=== PATIENT | male | born 1960 | race American Indian/Alaskan Native ===

== ENCOUNTER → 2017-12-03 | Outpatient (CLI) | payer OTHER | LOC: FIMAGING 10:42 | PROVIDERS: ATTEND Orthopaedic Surgery | DX: Z01.818 Encounter for other preprocedural examination (principal); M17.11 Unilateral primary osteoarthritis, right knee ==

== ENCOUNTER 2017-12-31 06:01 | Observation (INO) | payer OTHER ==
[~2017-12-31 06:01] MED LIST: ROPIVACAINE 0.2% 80 MG, EPINEPHrine 0.2 MG, KETOROLAC TROMETHAMINE 30 MG in SYRINGE 0 ML IU ONE; TRANEXAMIC ACID 3,000 MG in NS (SYRINGE) 50 ML IRR ONE
[2017-12-31] MEDS ORDERED: LIDOCAINE 1% 2 ML INJ ID PRN (06:15)
[2017-12-31] MEDS ORDERED: DEXAMETHASONE 4 MG/ML VIAL IVP ONE (06:15)
[2017-12-31] MEDS ORDERED: ACETAMINOPHEN 325 MG TAB PO ONE (06:15)
[2017-12-31] MEDS ORDERED: FAMOTIDINE 20 MG TAB PO ONE (06:15)
[2017-12-31] MEDS ORDERED: LR 1,000 ML IV ONE (06:15)
[2017-12-31] MEDS ORDERED: ceFAZolin 2 GM/DEXTROSE 100 ML IV ONE (06:15)
[2017-12-31] MEDS ORDERED: TRANEXAMIC ACID 3,000 MG/50 ML BAG IRR ONE (06:31)
--- NOTE | 2017-12-31 07:02 | PDHPUP ---
History & Physical Update H&P update statement: This history and physical update is based on an assessment of the patient which was completed after admission or registration (within 24 hours), but prior to the surgery/procedure. H&P update: H&P reviewed & patient examined, no change in patient's condition since H&P completed
[2017-12-31] MEDS ORDERED: MIDAZOLAM 2 MG/2 ML VIAL ONE (07:06)
[2017-12-31] MEDS ORDERED: PROPOFOL/EMULSION 500 MG/50 ML BOTTLE IV ONE (07:06)
--- NOTE | 2017-12-31 07:11 | PDANEPAE ---
ANE Past Medical History - Cardiovascular History Hx Hypertension: No Hx Arrhythmias: No Hx Chest Pain: No Hx Coronary Artery / Peripheral Vascular Disease: No Hx CHF / Valvular Disease: No Hx Palpitations: No - Pulmonary History Hx COPD: No Hx Asthma/Reactive Airway Disease: No Hx Recent Upper Respiratory Infection: No Hx Oxygen in Use at Home: No Hx Sleep Apnea: No Sleep Apnea Screening Result - Last Documented: Negative - Neurologic History Hx Cerebrovascular Accident: No Hx Seizures: No Hx Dementia: No - Endocrine History Hx Diabetes: No - Renal History Hx Renal Disorders: No Renal History Comment: kidney stones - Liver History Hx Hepatic Disorders: No - Neurological & Psychiatric Hx Hx Neurological and Psychiatric Disorders: Yes Neurological / Psychiatric History Comment: RA - Cancer History Hx Cancer: No - Congenital Disorder History Hx Congenital Disorders: No - GI History Hx Gastrointestinal Disorders: No - Other Health History Other Health History: none - Chronic Pain History Chronic Pain: No - Surgical History Prior Surgeries: L HAMSTRING RUPTURE REPAIR. L SHOULDER REPAIR. R SHOULDER REPAIR. L KNEE MEDIAL. MENISCECTOMY. R 4 PREVIOUS SX. R PERINEAL TENDON REPAIR ANE Review of Systems Review of Systems: - Exercise capacity METS (RN): 5 METS ANE Patient History - Allergies Allergies/Adverse Reactions: No Known Allergies Allergy (Verified 12/08/17 10:38) - Home Medications Home Medications: Acetaminophen/Codeine 300/30Mg [Tylenol #3 (*)] 1 each PO BID PRN 12/08/17 [ Last Taken 1 Month Ago ~11/30/17] Atorvastatin Calcium [Lipitor 10 mg (*)] 10 mg PO DAILY 12/08/17 [Last Taken 23:30] Etodolac [ETODOLAC] 400 mg PO DAILY PRN 12/08/17 [Last Taken 12/25/17] Gabapentin [Neurontin 300 MG (*)] 900 mg PO TID 12/08/17 [Last Taken 12/30/17 23 :30] Gemfibrozil [Lopid 600 MG (*)] 600 mg PO BIDAC 12/08/17 [Last Taken 1 Week Ago ~ 12/24/17] Hydroxychloroquine Sulfate [Plaquenil 200 mg (*)] 400 mg PO DAILY 12/08/17 [ Last Taken 12/30/17 23:30] Leflunomide [Arava 10 mg (*)] 10 mg PO DAILY 12/08/17 [Last Taken 12/30/17 23:30 ] Tocilizumab [Actemra] 8 mg IV Q28D 12/08/17 [Last Taken 1 Month Ago ~11/30/17] sulfaSALAzine [Azulfidine 500 MG (*)] 1,000 mg PO BID 12/08/17 [Last Taken 12/30 23:30] - NPO status NPO Since - Liquids (Date): 12/31/17 NPO Since - Liquids (Time): 04:00 NPO Since - Solids (Date): 12/30/17 NPO Since - Solids (Time): 21:00 - Smoking Hx Smoking Status: Never smoked - Family Anes Hx Family Hx Anesthesia Complications: none ANE Labs/Vital Signs - Vital Signs Blood Pressure: 152/90 Heart Rate: 81 Respiratory Rate: 18 O2 Sat (%): 94 Height: 182.88 cm Weight: 107.955 kg ANE Physical Exam - Airway Neck exam: FROM Mallampati Score: Class 1 Mouth exam: normal dental/mouth exam - Pulmonary Pulmonary: no respiratory distress, no rales or rhonchi, clear to auscultation - Cardiovascular Cardiovascular: regular rate and rhythym, no murmur, rub, or gallop - ASA Status ASA Status: II ANE Anesthesia Plan Anesthesia Plan: spinal Regional Anesthesia: adductor canal FNB
[2017-12-31] MEDS ORDERED: ALBUTEROL 3 ML DEYVIAL IH PRN (07:31)
[2017-12-31] MEDS ORDERED: ACETAMINOPHEN 500 MG TAB PO PRN (07:31)
[2017-12-31] MEDS ORDERED: NALOXONE HCL 0.4 MG/ML INJ IVP PRN (07:31)
[2017-12-31] MEDS ORDERED: fentaNYL 100 MCG/2 ML INJ IVP PRN (07:31)
[2017-12-31] MEDS ORDERED: HYDROCODONE/APAP 5/325 TAB PO PRN (07:31)
[2017-12-31] MEDS ORDERED: LIDOCAINE 2% 5 ML SDV ONE (07:34)
[2017-12-31] MEDS ORDERED: PROMETHAZINE HCL 25 MG/ML INJ IVP PRN ×2 (07:42→08:47)
[2017-12-31] MEDS ORDERED: ONDANSETRON 4 MG/2 ML VIAL IVP PRN ×2 (07:42→08:47)
[2017-12-31] MEDS ORDERED: LR 500 ML IV PRN (07:42)
[2017-12-31] MEDS ORDERED: DEXAMETHASONE 4 MG/ML VIAL IVP PRN (07:42)
[2017-12-31] MEDS ORDERED: VANCOMYCIN 1 GM VIAL ONE (08:14)
[2017-12-31] MEDS ORDERED: ROPIVACAINE HCL 150 MG/30 ML INJ ONE (08:29)
[2017-12-31] MEDS ORDERED: CYCLOBENZAPRINE 10 MG TAB PO PRN (08:47)
[2017-12-31] MEDS ORDERED: METOCLOPRAMIDE 10 MG/2 ML VIAL IVP PRN (08:47)
[2017-12-31] MEDS ORDERED: ONDANSETRON DISINTEGRATING 4 MG TAB PO PRN (08:47)
[2017-12-31] MEDS ORDERED: TEMAZEPAM 15 MG CAP PO PRN (08:47)
[2017-12-31] MEDS ORDERED: DIPHENOXYLATE/ATROPINE LOMOTIL 1 TAB PO PRN (08:47)
[2017-12-31] MEDS ORDERED: BISACODYL 10 MG SUPP PR PRN (08:47)
[2017-12-31] MEDS ORDERED: LACTULOSE 20 GM/30 ML UDCUP PO PRN (08:47)
[2017-12-31] MEDS ORDERED: PROMETHAZINE HCL 25 MG SUPPR PR PRN (08:47)
[2017-12-31] MEDS ORDERED: diphenhydrAMINE 25 MG CAP PO PRN (08:47)
[2017-12-31] MEDS ORDERED: POLYETHYLENE GLYCOL 3350 17 GM PKT PO PRN (08:47)
[2017-12-31] MEDS ORDERED: MAGNESIUM HYDROXIDE 30 ML UDCUP PO PRN (08:47)
[2017-12-31] MEDS ORDERED: LR 1,000 ML IV SCH (09:00)
[2017-12-31] MEDS ORDERED: SENNOSIDES/DOCUSATE SODIUM TAB PO SCH (09:00)
--- NOTE | 2017-12-31 09:10 | POSTANESTH ---
Post Anesthetic Evaluation Cardiovascular Status: Normal, Stable, Similar to Pre-Op Cond Respiratory Status: Normal, Stable, Similar to Pre-op Cond. Level of Consciousness/Mental Status: Can Participate in Eval Pain Control: Adequate, Prn Tx Ordered Nausea/Vomiting Control: Adequate, Prn Tx Ordered Complications Possibly Related to Anesthesia: None Noted
--- NOTE | 2017-12-31 09:21 | POSTOPPROG ---
Post Op Note Date of Operation: 12/31/17 Surgeon: Eloise Arzola Inspector Final Assembly Conveyor Line: Shannan Arzola PAc Anesthesiologist: Nick Anesthesia: Spinal Pre-op Diagnosis: R Knee DJD with RA Post-op Diagnosis: same Indication: pain Procedure: R TKA Findings: DJD knee Inf/Abcess present in the surg proc area at time of surgery?: No EBL: 50-100
[2017-12-31] MEDS: oxyCODONE IR 5 MG TAB PO PRN ×3 (10:37→17:08)
[2017-12-31] MEDS: ACETAMINOPHEN 325 MG TAB PO SCH ×2 (11:50→17:08)
[2017-12-31 13:18] VITALS: BP 161/82
--- NOTE | 2017-12-31 13:57 | ASMTCASEMG ---
Living Arrangements What is your living Answers: With Spouse arrangement? Who do you live with? Type Of Residence What kind of residence do Answers: House you live in? Discharge Plan Comments Coordination Status Comments Notes: Pt is a 57 y/o man admitted for a total knee. PT is recommending home w/ outpatient rehab follow up. No other needs identified at this time. CM available for changes. Plan: Independent Date Signed: 12/31/2017 01:56 PM Electronically Signed By:GALO Read
[2017-12-31] MEDS ORDERED: ceFAZolin 2 GM/DEXTROSE 100 ML IV SCH (15:00)
[2017-12-31] MEDS ORDERED: GABAPENTIN 300 MG CAP PO SCH (16:00)
[2017-12-31] MEDS ORDERED: GEMFIBROZIL 600 MG TAB PO SCH (17:30)
[2017-12-31] MEDS ORDERED: FAMOTIDINE 20 MG TAB PO SCH (21:00)
[2017-12-31] MEDS ORDERED: ASPIRIN 81 MG CHEWABLE TAB PO SCH (21:00)
[2017-12-31] MEDS ORDERED: sulfaSALAzine 500 MG TAB PO SCH (21:00)
--- NOTE | 2018-01-01 04:56 | GOP ---
[f rep st] OPERATIVE REPORT DATE OF OPERATION: 12/31/2017 SURGEON: Johan Arzola MD NEUROSURGEON: Johan Arzola MD INVENTORY MANAGER: OLVIN Alva ANESTHESIA: Spinal. PREOPERATIVE DIAGNOSIS: Right knee osteoarthritis. POSTOPERATIVE DIAGNOSIS: Right knee osteoarthritis. PROCEDURE PERFORMED: Right total knee arthroplasty with computer navigation, robotic assist. FINDINGS: ESTIMATED BLOOD LOSS: 30 mL. INDICATIONS: The patient is a 57-year-old male with severe and progressive pain and deformity of the right knee unresponsive to conservative care. The risks and benefits of surgical intervention were explained in detail. DESCRIPTION OF PROCEDURE: The patient was brought to the operative room and placed on the table in the supine position. Spinal anesthesia was induced without difficulty. A pneumatic tourniquet was applied about the right proximal thigh, and the leg was prepped and draped in a sterile fashion. The leg huerta was applied. After exsanguination by elevation the tourniquet was inflated to 250 mmHg. Incision was made anterior medial from the tibial tuberosity to a point 2 cm proximal to the superior pole of the patella. Medial parapatellar arthrotomy was carried out from the superior pole of the patella and posteriorly in line with the fibers of the Type II VMO. The medial collateral ligament was elevated and the infrapatellar fat pad was resected. The patella was everted and the articular surface was excised. A 38 mm patellar button was placed. Attention was turned first to the distal aspect of the femur. After exposure of the femur, 2 half pins were placed for fixation of the femoral array. In a similar fashion, 2 pins were placed anteromedial on the tibia for fixation of the tibial array. External land marking and registration of the hip center was performed without difficulty. Internal femoral and tibial registration was carried out without difficulty and the femoral and tibial checkpoints were placed and verified for accuracy. Attention was turned to the femur. The foot print for the size 6 femoral component was cut with the saw using the [email or web address] robotic system and verified for accuracy against the CT based plan. In a similar fashion, the saw was used to cut the footprint for the size 7 tibial component using the LANEY system and verified for accuracy against the CT based plan. The tibial articular surface was excised without difficulty, followed by the intercondylar box cut. The knee was extended and the remnants of the medial and lateral meniscus were excised. The posterior capsule was injected with ropivacaine, epinephrine and Toradol. A size 7 tibial tray was positioned. Trial reduction was then carried out. There was excellent range of motion, alignment, and stability using the 7 x 9 mm polyethylene. All trials were then removed. The joint was thoroughly irrigated and carefully dried. The cemented tibia and pressfit femur and patella components were implanted. The permanent 9 mm polyethylene X3 was placed without difficulty. The tourniquet was deflated and all bleeders were coagulated. The wound was thoroughly irrigated and closed using interrupted sutures of 2-0 Vicryl for the joint capsule. The subcutaneous was closed with 3-0 Vicryl and the skin with 4- 0 Monocryl. Dermabond and Steri-Strips were applied followed by a compressive dressing. The patient was then moved from the operating room to the recovery room in good condition, having tolerated the procedure well. OrthoSensor Verasense sensor was used to confirm balance and alignment. /[id number]/MODL MTDD
[2018-01-01] MEDS ORDERED: HYDROXYCHLOROQUINE SULFATE 200 MG TAB PO SCH (09:00)
[2018-01-01] MEDS ORDERED: ATORVASTATIN CALCIUM 10 MG TAB PO SCH (09:00)
[2018-01-01] MEDS ORDERED: LEFLUNOMIDE 10 MG TAB PO SCH (09:00)
== END 2017-12-31 17:55 | disposition home or self-care (01) ==
LOC: FSGY 06:01 → F3N 08:47 → EDSTATUS 11:15
PROVIDERS: ADMIT Orthopaedic Surgery; ATTEND Orthopaedic Surgery
PROC: 0SRC0JZ Replacement of Right Knee Joint with Synthetic Substitute, Open Approach (ICD-10-PCS; principal; 2017-12-31 07:15)
DX: M17.11 Unilateral primary osteoarthritis, right knee (principal)
CPT/HCPCS: 27447; 73560; 97116; 97161; G0378; C1713; J0690; J1100; J2250; J2704; J2795; J3370

== ENCOUNTER → 2018-01-30 | Outpatient (CLI) | payer OTHER | LOC: FIMAGING 11:29 | PROVIDERS: ATTEND Orthopaedic Surgery | DX: Z03.89 Encounter for observation for other suspected diseases and conditions ruled out (principal); Z96.651 Presence of right artificial knee joint ==